=== PATIENT | female | born 1965 | race Caucasian/White ===

== ENCOUNTER → 2020-07-27 | Day surgery (SDC) | payer OTHER | END | disposition home or self-care (01) | LOC: FMAMMOTONE 10:12 | PROVIDERS: ATTEND Internal Medicine | PROC: 0H9T3ZX Drainage of Right Breast, Percutaneous Approach, Diagnostic (ICD-10-PCS; principal; 2020-07-27) | DX: N60.91 Unspecified benign mammary dysplasia of right breast (principal); D24.1 Benign neoplasm of right breast; N60.31 Fibrosclerosis of right breast | CPT/HCPCS: 19081; 76098-TC-FY; 87899; 88305-TC; 88341-TC; 88342-TC; A4648 ==

== ENCOUNTER 2024-06-16 06:41 | Day surgery (SDC) | payer OTHER ==
[2024-06-16 11:39] VITALS: RESP 18; BMI 26.0
[2024-06-16] MEDS ORDERED: MIDAZOLAM HCL 2 MG/2 ML SINGLE DOSE VIAL ONE (15:24)
[2024-06-16] MEDS ORDERED: PROPOFOL 20 ML ONE (15:35)
[2024-06-16] MEDS ORDERED: PROMETHAZINE HCL 25 MG/1 ML VIAL IVPB PRN (15:41)
[2024-06-16] MEDS ORDERED: oxyCODONE HCL 5 MG TABLET PO PRN (15:41)
[2024-06-16] MEDS: ACETAMINOPHEN 1000 MG/100 ML BAG IVPB ONE (16:08)
[2024-06-16] MEDS: ACETAMINOPHEN INJECTION 100 ML ONE (16:08)
[2024-06-16] MEDS ORDERED: IBUPROFEN 400 MG TABLET (FP) PO PRN (16:14)
[2024-06-16] MEDS ORDERED: ACETAMINOPHEN 325 MG TABLET (FP) PO PRN (16:14)
[2024-06-16 17:48] VITALS: BP 134/76; PULSE 79; TEMP 97.8
== END 2024-06-16 18:13 | disposition home or self-care (01) ==
LOC: JASU-SURG 06:41
PROVIDERS: ATTEND Specialist
PROC: 0UB98ZZ Excision of Uterus, Via Natural or Artificial Opening Endoscopic (ICD-10-PCS; principal; 2024-06-16 13:15)
DX: N95.0 Postmenopausal bleeding (principal); D25.0 Submucous leiomyoma of uterus; N84.0 Polyp of corpus uteri
CPT/HCPCS: 88305-TC; 94760; J0131